=== PATIENT | male | born 1960 | race African-American/Black ===

== ENCOUNTER 2021-10-31 04:29 | Day surgery (SDC) | payer OTHER ==
[2021-10-27 18:42] VITALS: BMI 26.9
[2021-10-31] MEDS ORDERED: MIDAZOLAM HCL 2 MG/2 ML SINGLE DOSE VIAL ONE (15:07)
[2021-10-31 17:30] VITALS: BP 122/86; PULSE 60; TEMP 98
== END 2021-10-31 17:33 | disposition home or self-care (01) ==
LOC: JASU-SURG 04:29
PROVIDERS: ATTEND Urology
PROC: 0TF4XZZ Fragmentation in Left Kidney Pelvis, External Approach (ICD-10-PCS; principal; 2021-10-31 14:00)
DX: N20.0 Calculus of kidney (principal)

== ENCOUNTER 2023-01-29 10:00 | Emergency (ER) | payer OTHER ==
[2023-01-29 10:14] VITALS: BP 123/75; PULSE 64; RESP 18; TEMP 97.5; BMI 26.9
[2023-01-29] MEDS ORDERED: ACETAMINOPHEN 500 MG TABLET (FP) PO ONE (10:41)
[2023-01-29] MEDS ORDERED: LIDOCAINE 5% TOPICAL PATCH TP ONE (10:41)
[2023-01-29] MEDS ORDERED: KETOROLAC TROMETHAMINE 30 MG/1 ML VIAL IM ONE (10:41)
[2023-01-29] MEDS ORDERED: KETOROLAC TROMETHAMINE 30 MG/1 ML VIAL ONE (10:47)
[2023-01-29] MEDS ORDERED: ACETAMINOPHEN 325 MG TABLET (FP) ONE (10:47)
[2023-01-29] MEDS ORDERED: LIDOCAINE 5% TOPICAL PATCH ONE (10:47)
[2023-01-29] MEDS ORDERED: LIDOCAINE PATCH REMOVAL MC ONE (22:00)
== END 2023-01-29 11:10 | disposition home or self-care (01) ==
LOC: JER 10:00 → JERFT 10:00
PROC: 3E0233Z Introduction of Anti-inflammatory into Muscle, Percutaneous Approach (ICD-10-PCS; principal; 2023-01-29)
DX: M54.50 Low back pain, unspecified (principal)
CPT/HCPCS: 99284-25